=== PATIENT | male | born 1960 | race Caucasian/White ===

== ENCOUNTER 2017-04-05 12:57 | Emergency (ER) | payer OTHER ==
[~2017-04-05] VITALS: Ht 185.4 cm; Wt 104.5 kg
[2017-04-05 12:59] VITALS: BP 134/71; PULSE 90; RESP 16; O2SAT 96
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
[2017-04-05 13:06] LABS: BASOPHILS % (AUTO) 0.3 % (0-3); EOSINOPHILS % (AUTO) 1.8 % (0-5); MONOCYTES % (AUTO) 7.1 % (4-12); Mean Corpuscular Hemoglobin 32.9 pg (27.0-35.0); Mean Corpuscular Volume 91.1 fL (81-100); NEUTROPHILS % (AUTO) 53.8 % (40-74); Platelet Count 262 bil/L (150-400)
[2017-04-05 13:23] LABS: INR 0.93 ratio
[2017-04-05] MEDS ORDERED: TdaP Vaccine 0.5 mL Inj IM ONE (13:30)
[2017-04-05] MEDS ORDERED: CeFAZolin Inj 2 GM in IV Premix 1 EACH IV ONE (13:30)
--- NOTE | 2017-04-05 13:35 | DRSVH ---
PROCEDURE: X-RAY CHEST ONE VIEW, PORTABLE ([id number]) INDICATIONS: pain TECHNIQUE: One view of the chest was acquired. COMPARISON: None. FINDINGS: Surgical changes and devices: None. Lungs and pleura: There are low lung volumes. No lobar consolidation is evident. However, there baylee ears to be infrahilar/left basilar airspace disease. The Mediastinum: Mediastinal contours appear normal. Heart size is normal. Bones and chest wall: No suspicious bony lesions. Degenerative changes of the left shoulder are pre sent. There may be calcific tendinitis of the left shoulder. Degenerative changes of the imaged spi ne are noted with dextroconvex curvature of the upper thoracic spine. Overlying soft tissues appear unremarkable. IMPRESSION: Small left basilar pneumonia versus atelectasis. Dictated by: Merlin Cullen M.D. on 04/05/2017 at 12:30 Approved by: Merlin Cullen M.D. on 04/05/2017 at 12:33
--- NOTE | 2017-04-05 13:38 | DRSVH ---
PROCEDURE: X-RAY LEFT TIBIA/FIBULA, TWO VIEWS ([id number]) INDICATIONS: pain TECHNIQUE: 2 views of the tibia and fibula were acquired. COMPARISON: None. FINDINGS: Bones: A long segment vertically oriented fracture involving the lateral tibial plateau is identified that extends from the articular surface to the mid shaft of the tibia. No definite associated fibul a fracture is appreciated. Slight deformity of the distal fibular shaft probably is related to previ ous trauma and. No significant articular surface offset of the lateral tibial plateau is evident. Soft tissues: No suspicious soft tissue calcifications or masses. IMPRESSION: Essentially nondisplaced intra-articular vertically oriented fracture of the lateral tibi al plateau that extends into the mid tibial shaft. No significant displacement of the articular surf chuck of the tibial plateau is present. Dictated by: Merlin Cullen M.D. on 04/05/2017 at 12:36 Approved by: Merlin Cullen M.D. on 04/05/2017 at 12:37
[2017-04-05] MEDS: HYDROmorphone 1 mg/mL Inj IVPUSH PRN ×6 (13:44→17:43)
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
--- NOTE | 2017-04-05 14:33 | DRSVH ---
PROCEDURE: CT FACE WITHOUT CONTRAST ([id number]) INDICATIONS: pain TECHNIQUE: Noncontrast 1.5 mm thick axial images acquired from the mandible through the frontal sinuses, with co ruby and sagittal reformatting. For radiation dose reduction, the following was used: automated ex posure control. COMPARISON: None. FINDINGS: Image quality: Motion degraded study. Bones and teeth: Minimally displaced right nasal bone fracture, with overlying soft tissue swelling and laceration. Sinuses: Mild fluid and possible mucous retention cyst or polyp seen in the right maxillary antrum. M astoid air cells are aerated. Soft tissues: No edema, masses, or fluid collections. No enlarged lymph nodes. No soft tissue lace rations or debris. Vascular: Visualized vascular structures appear normal in the absence of contrast. Bony vascular fo ramina and canals are intact. IMPRESSION: Minimally displaced right nasal bone fracture with overlying soft tissue changes as above. Although motion degraded examination, no other gross or displaced facial fractures seen. Right maxillary sinus disease. Dictated by: Niko Aguilar M.D. on 04/05/2017 at 14:28 Approved by: Niko Aguilar M.D. on 04/05/2017 at 14:32
[2017-04-05] MEDS ORDERED: BUPIVACAINE 0.25%/EPI 50 mL Inj NERVEBLOCK ONE (14:35)
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
--- NOTE | 2017-04-05 14:43 | DRSVH ---
PROCEDURE: X-RAY LEFT SHOULDER, MINIMUM TWO VIEWS ([id number]) INDICATIONS: pain TECHNIQUE: 3 views of the shoulder were acquired. COMPARISON: [facility], CR, XR HUMERUS 2VW LT, 04/05/2017, 14:04. FINDINGS: Bones: There is a transverse fracture involving the body of the scapula with mild anterior displaceme nt of the distal fracture fragments. There appear to be multiple left-sided rib fractures. No dislo cation of the glenohumeral or acromioclavicular joints are present. Soft tissues: No suspicious soft tissue calcifications. IMPRESSION: 1. Mildly displaced fracture of the inferior body of the scapula. 2. Apparent left-sided rib fractures. Dictated by: Merlin Cullen M.D. on 04/05/2017 at 13:40 Approved by: Merlin Cullen M.D. on 04/05/2017 at 13:41
--- NOTE | 2017-04-05 14:54 | DRSVH ---
PROCEDURE: X-RAY LEFT HUMERUS, MINIMUM TWO VIEWS ([id number]) INDICATIONS: pain TECHNIQUE: 2 views of the humerus were acquired. COMPARISON: None. FINDINGS: Bones: A fracture involving the inferior border of the scapula is not well seen on this exam. There also appear to be left rib fractures. The humerus is intact. No suspicious osseous lesions are pres ent. Soft tissues: No suspicious soft tissue calcifications. IMPRESSION: 1. Intact humerus. 2. Fracture of the inferior border of the left scapula and left rib fractures are not well seen. Dictated by: Merlin Cullen M.D. on 04/05/2017 at 13:51 Approved by: Merlin Cullen M.D. on 04/05/2017 at 13:52
[2017-04-05 14:59] VITALS: BP 117/62; PULSE 76; O2SAT 98
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
[2017-04-05] MEDS ORDERED: ATOR20TA65 PO (16:10)
[2017-04-05] MEDS ORDERED: NIFE60TA62 PO (16:10)
[2017-04-05] MEDS ORDERED: MELA1TAB11 PO (16:10)
[2017-04-05] MEDS ORDERED: OMEP20TA24 PO (16:10)
[2017-04-05] MEDS ORDERED: LISI-567 PO (16:10)
[2017-04-05] MEDS ORDERED: ASPI-973 PO (16:10)
[2017-04-05 17:46] VITALS: BP 117/62; PULSE 76; RESP 16; O2SAT 98
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
== END 2017-04-05 17:46 | disposition short-term general hospital (02) ==
LOC: EDBD 12:57 → SED 12:57
DX: S82.142A Displaced bicondylar fracture of left tibia, initial encounter for closed fracture (principal); S42.102A Fracture of unspecified part of scapula, left shoulder, initial encounter for closed fracture; S22.42XA Multiple fractures of ribs, left side, initial encounter for closed fracture; S42.025A Nondisplaced fracture of shaft of left clavicle, initial encounter for closed fracture; S32.040A Wedge compression fracture of fourth lumbar vertebra, initial encounter for closed fracture; S01.21XA Laceration without foreign body of nose, initial encounter; F10.120 Alcohol abuse with intoxication, uncomplicated; V28.4XXA Motorcycle driver injured in noncollision transport accident in traffic accident, initial encounter; Y93.89 Activity, other specified; Y99.8 Other external cause status; Y92.410 Unspecified street and highway as the place of occurrence of the external cause; I10 Essential (primary) hypertension; E78.5 Hyperlipidemia, unspecified; F17.200 Nicotine dependence, unspecified, uncomplicated; Z79.82 Long term (current) use of aspirin; Z88.0 Allergy status to penicillin
CPT/HCPCS: 29505; 36415; 70450; 70486; 71010; 71250; 72125; 73030; 73060; 73590; 74177; 80053; 85025; 85610; 85730; 86850; 90471; 90715; 96365; 96375; 96376; 99285; G0390; G0480; J0690; J1170; Q9967